=== PATIENT | male | born 1980 | race Caucasian/White ===

== ENCOUNTER 2018-12-01 13:45 | Emergency (ER) | payer OTHER ==
[2018-12-01] MEDS ORDERED: NORMAL SALINE 1000 ML 1,000 ML IV ONE ×2 (14:11→17:26)
--- NOTE | 2018-12-01 14:11 | ER Document Report ---
ED Medical Screen (RME) - General Chief Complaint: Nausea/Vomiting Stated Complaint: NAUSEA,VOMITING Time Seen by Provider: 12/01/18 14:10 Mode of Arrival: Medic Information source: Patient Notes: 38-year-old male presented to ED for generalized abdominal pain since yesterday. He states he is also had nausea and vomiting vomited once yesterday and 2 times today. He was brought in by EMS and they gave him 4 mg of IV Zofran and 500 cc of normal saline. He states the belly pain and the nausea is better but he still has it some. He will be given another 4 mg of Zofran and a liter of flui ds. Blood and urine will be sent. Patient is alert oriented respirations regular and unlabored speaking in full sentences. I have greeted and performed a rapid initial assessment of this patient. A comprehensive ED assessment and evaluation of the patient, analysis of test results and completion of medical decision making process will be conducted by an additional ED providers. TRAVEL OUTSIDE OF THE [place] IN LAST 30 DAYS: No - Related Data Allergies/Adverse Reactions: No Known Allergies Allergy (Unverified 12/01/18 13:50) Physical Exam - Vital signs Vitals: Temp Pulse Resp BP Pulse Ox 98.4 F 100 16 106/56 L 98 12/01/18 13:52 12/01/18 13:52 12/01/18 13:52 12/01/18 13:52 12/01/18 13:52 Course - Vital Signs Vital signs: Temp Pulse Resp BP Pulse Ox 98.4 F 100 16 106/56 L 98 12/01/18 13:52 12/01/18 13:52 12/01/18 13:52 12/01/18 13:52 12/01/18 13:52
[2018-12-01] MEDS ORDERED: ONDANSETRON HCL INJ/PF 4 MG/2 ML SDV IV ONE (14:12)
[2018-12-01 14:52] LABS: ABSOLUTE LYMPHOCYTES (AUTO) 0.7 10^3/uL (0.5-4.7); ABSOLUTE MONOCYTES (AUTO) 0.6 10^3/uL (0.1-1.4); ABSOLUTE NEUT (AUTO) 8.3 10^3/uL (1.7-8.2); BASOPHILS % (AUTO) 0.3 % (0-2); EOSINOPHILS % (AUTO) 0.3 % (0-6); HEMATOCRIT 46.6 % (37.9-51.0); HEMOGLOBIN 15.8 g/dL (13.5-17.0); LYMPHOCYTES % (AUTO) 6.8 % (13-45); MEAN CORPUSCULAR HEMOGLOBIN 30.7 pg (27.0-33.4); MEAN CORPUSCULAR HGB CONC 33.8 g/dL (32.0-36.0); MEAN CORPUSCULAR VOLUME 91 fl (80-97); MONOCYTES % (AUTO) 6.6 % (3-13); PLATELET COUNT 401 10^3/uL (150-450); RED BLOOD COUNT 5.14 10^6/uL (4.35-5.55); RED CELL DISTRIBUTION WIDTH 13.3 % (11.5-14.0); TOTAL CELLS COUNTED % (AUTO) 100 %; WHITE BLOOD COUNT 9.7 10^3/uL (4.0-10.5)
[2018-12-01 15:03] LABS: APPEARANCE,URINE SLIGHTLY-CLOUDY; BILIRUBIN,URINE SMALL (NEGATIVE); COLOR,URINE AMBER; GLUCOSE, URINE NEGATIVE (NEGATIVE); KETONES,URINE 20 mg/dL (NEGATIVE); LEUKOCYTE ESTERASE,URINE NEGATIVE (NEGATIVE); NITRITE,URINE NEGATIVE (NEGATIVE); PROTEIN,URINE 100 mg/dL (NEGATIVE); URINE SPECIFIC GRAVITY 1.035
[2018-12-01 15:12] LABS: ALANINE AMINOTRANSFERASE 95 U/L (21-72); ALBUMIN 3.8 g/dL (3.5-5.0); ALKALINE PHOSPHATASE 33 U/L (38-126); ANION GAP 10 (5-19); ASPARTATE AMINO TRANSFERASE 60 U/L (17-59); BILIRUBIN,DIRECT 0.4 mg/dL (0.0-0.4); BILIRUBIN,TOTAL 1.1 mg/dL (0.2-1.3); BLOOD UREA NITROGEN 18 mg/dL (7-20); CALCIUM 8.5 mg/dL (8.4-10.2); CARBON DIOXIDE 30 mmol/L (22-30); CHLORIDE 98 mmol/L (98-107); GLUCOSE 115 mg/dL (75-110); POTASSIUM 5.2 mmol/L (3.6-5.0); SODIUM 138.3 mmol/L (137-145); TOTAL PROTEIN 6.3 g/dL (6.3-8.2)
[2018-12-01] MEDS ORDERED: MAG HYDROX/AL HYDROX/SIMETH SUSP 30 ML UDCUP PO ONE (17:27)
[2018-12-01] MEDS ORDERED: LIDOCAINE 2% VISCOUS SOLN 20 ML UDCUP PO ONE (17:27)
[2018-12-01] MEDS ORDERED: PANTOPRAZOLE SODIUM 40 MG VIAL IV ONE (17:27)
[2018-12-01] MEDS ORDERED: METOCLOPRAMIDE HCL ORAL SOLN 10 MG/10 ML UDCUP PO ONE (17:27)
--- NOTE | 2018-12-01 17:34 | ER Document Report ---
ED General - General Chief Complaint: Nausea/Vomiting Stated Complaint: NAUSEA,VOMITING Time Seen by Provider: 12/01/18 14:10 Mode of Arrival: Medic TRAVEL OUTSIDE OF THE [place] IN LAST 30 DAYS: No - HPI Notes: Patient is a 38-year-old male that presents to the emergency department for chief complaint of nausea vomiting and diarrhea. Patient states yesterday morning he made eggs but ate them about 5 hours after making them. They had been sitting in room air. Patient states shortly after eating the eggs he started to feel nauseated and vomit. He states he had multiple episodes of emesis through last night and into this morning. He does report a few episodes of diarrhea as well. He denies any black or bloody stools. He states his last 2 episodes of emesis appeared to be bloody and black. Patient also reports crampy abdominal pain that started at the same time as the nausea yesterday. It is intermittent. He denies aggravating or relieving factors to his abdominal pain. He denies history of upper GI bleeding in the past. Patient states he used to be a heavy drinker but quit drinking alcohol a few months ago. He has had studies on his liver previously and states he has never had esophageal varices. He did receive fluids and Zofran in triage and states he is feeling much better. His nausea has resolved. He is asking for something to drink. Past Medical History: Negative Past Surgical History: Negative Social History: History of heavy alcohol abuse currently quit. Denies drug use Family History: Reviewed and noncontributory for presenting illness Allergies: Reviewed, see documented allergy list. REVIEW OF SYSTEMS: CONSTITUTIONAL : No fever No chills No diaphoresis No recent illness EENT: No vision changes No congestion No sore throat CARDIOVASCULAR: No chest pain No palpitations RESPIRATORY: No shortness of breath No cough No difficulty breathing GASTROINTESTINAL: abdominal pain nausea vomiting diarrhea GENITOURINARY: No dysuria No hematuria No difficulty urinating MUSCULOSKELETAL: No back pain No leg pain No arm pain SKIN: No rashes No lesions LYMPHATIC: No swollen, enlarged glands. NEUROLOGICAL: No lightheadedness No headache No weakness No paresthesias PSYCHIATRIC: No anxiety No depression PHYSICAL EXAMINATION: Vital signs reviewed, nursing noted reviewed. GENERAL: Well-appearing, well-nourished and in no acute distress. HEAD: Atraumatic, normocephalic. EYES: Eyes appear normal, extraocular movements intact, sclera anicteric, conjunctiva are normal. ENT: nares patent, oropharynx clear without exudates. Dry mucous membranes. NECK: No crepitus normal range of motion, supple without lymphadenopathy LUNGS: Breath sounds clear to auscultation bilaterally and equal. No wheezes rales or rhonchi. HEART: Regular rate and rhythm without murmurs ABDOMEN: Soft, nontender, normoactive bowel sounds. No rebound, guarding, or rigidity. No masses appreciated. EXTREMITIES: Nontender, good range of motion, no pitting or edema. NEUROLOGICAL: No focal neurological deficits. Moves all extremities spontaneously Motor and sensory grossly intact on exam. PSYCH: Normal mood, normal affect. SKIN: Warm, Dry, normal turgor, no rashes or lesions noted on exposed skin - Related Data Allergies/Adverse Reactions: No Known Allergies Allergy (Unverified 12/01/18 13:50) Past Medical History - General Information source: Patient - Social History Smoking Status: Current Every Day Smoker Chew tobacco use (# tins/day): No Frequency of alcohol use: weekly Drug Abuse: None Family History: Reviewed & Not Pertinent Patient has suicidal ideation: No Patient has homicidal ideation: No Renal/ Medical History: Denies: Hx Peritoneal Dialysis Physical Exam - Vital signs Vitals: Temp Pulse Resp BP Pulse Ox 98.4 F 100 16 106/56 L 98 12/01/18 13:52 12/01/18 13:52 12/01/18 13:52 12/01/18 13:52 12/01/18 13:52 Course - Re-evaluation Re-evalutation: 12/01/18 17:32 Vitals reviewed. Nursing notes reviewed. Patient is well-appearing but does appear dehydrated. He received IV fluids in triage and Zofran and states his nausea has improved. His mucous members are still dry and will be given a second liter of fluids. Patient did show me a photo of his emesis which is consistent with upper GI bleeding. His hematemesis started after multiple episodes of forceful emesis last night. He likely has a Ella-Landon tear. He has no severe pain in his chest or chest crepitus to suggest esophageal perforation. Patient will be given Protonix and GI cocktail for further symptomatic management. His lab work shows no acute anemia. He does appear dehydrated with a slight elevation of creatinine. His LFTs are also slightly elevated which may be related to his history of alcohol use or his forceful vomiting over the last 24 hours. Patient has no focal abdominal tenderness to suggest acute cholecystitis or other intra-abdominal process requiring imaging. Patient is tolerating oral intake. He will be discharged home with Zofran and omeprazole. Patient told if the hematemesis continues he should return to the emergency room. He is stable at discharge. Laboratory 12/01/18 12/01/18 12/01/18 14:20 14:30 14:30 WBC 9.7 RBC 5.14 Hgb 15.8 Hct 46.6 MCV 91 MCH 30.7 MCHC 33.8 RDW 13.3 Plt Count 401 Seg Neutrophils % 86.0 H Lymphocytes % 6.8 L Monocytes % 6.6 Eosinophils % 0.3 Basophils % 0.3 Absolute Neutrophils 8.3 H Absolute Lymphocytes 0.7 Absolute Monocytes 0.6 Absolute Eosinophils 0.0 Absolute Basophils 0.0 Sodium 138.3 Potassium 5.2 H Chloride 98 Carbon Dioxide 30 Anion Gap 10 BUN 18 Creatinine 1.34 H Est GFR ( Amer) > 60 Est GFR (Non-Af Amer) > 60 Glucose 115 H Calcium 8.5 Total Bilirubin 1.1 Direct Bilirubin 0.4 Neonat Total Bilirubin Not Reportable Neonat Direct Bilirubin Not Reportable Neonat Indirect Bili Not Reportable AST 60 H ALT 95 H Alkaline Phosphatase 33 L Total Protein 6.3 Albumin 3.8 Lipase 133.0 Urine Color MICHAEL Urine Appearance SLIGHTLY-CLOUDY Urine pH 6.0 Ur Specific Mcintosh 1.035 Urine Protein 100 H Urine Glucose (UA) NEGATIVE Urine Ketones 20 H Urine Blood NEGATIVE Urine Nitrite NEGATIVE Urine Bilirubin SMALL H Urine Urobilinogen 2.0 H Ur Leukocyte Esterase NEGATIVE Urine WBC (Auto) 3 Urine RBC (Auto) 2 Urine Bacteria (Auto) TRACE Urine Mucus (Auto) MOD Urine Ascorbic Acid NEGATIVE - Vital Signs Vital signs: Temp Pulse Resp BP Pulse Ox 98.4 F 100 16 106/56 L 98 12/01/18 13:52 12/01/18 13:52 12/01/18 13:52 12/01/18 13:52 12/01/18 13:52 - Laboratory Result Diagrams: 12/01/18 14:30 12/01/18 14:30 Laboratory results interpreted by me: 12/01/18 12/01/1819 14:20 14:30 14:30 Seg Neutrophils % 86.0 H Lymphocytes % 6.8 L Absolute Neutrophils 8.3 H Potassium 5.2 H Creatinine 1.34 H Glucose 115 H AST 60 H ALT 95 H Alkaline Phosphatase 33 L Urine Protein 100 H Urine Ketones 20 H Urine Bilirubin SMALL H Urine Urobilinogen 2.0 H Discharge - Discharge Clinical Impression: Abdominal cramping Hematemesis Qualifiers: Nausea presence: with nausea Qualified Code(s): K92.0 - Hematemesis Diarrhea Qualifiers: Diarrhea type: unspecified type Qualified Code(s): R19.7 - Diarrhea, unspecified Condition: Stable Disposition: HOME, SELF-CARE Instructions: Prilosec (Acid Pump Inhibitor) ([facility]), Upper Gastrointestinal Bleeding ([facility]) Additional Instructions: If you continue to have vomiting with blood you should be reevaluated in the emergency room Please return to the emergency department if you have any worsening, or concern of your symptoms. Please return to the emergency department if you develop chest pain, difficulty breathing, severe abdominal pain, or ongoing vomiting. Please follow-up with your primary care physician in 2-3 days and any other r ecommended physicians. If prescribed, take all medications as directed. If you have any questions or concerns do not hesitate to return the emergency department for evaluation. Prescriptions: Omeprazole 40 mg PO DAILY #30 capsule. Ondansetron [Zofran Odt 4 mg Tablet] 1 tab PO Q4H PRN #15 tab.rapdis PRN Reason: For Nausea/Vomiting Referrals: INA HALEY MD [ACTIVE STAFF] - Follow up in 1 week
[2018-12-01 19:18] VITALS: BP 120/66
== END 2018-12-01 19:18 | disposition home or self-care (01) ==
LOC: ER 13:45
DX: R10.84 Generalized abdominal pain (principal); K92.0 Hematemesis; R19.7 Diarrhea, unspecified; F17.200 Nicotine dependence, unspecified, uncomplicated
CPT/HCPCS: 99283; 96361; 96374; 96375; 36415; 83690; 85025; 80053; 81001; J3490; S0164; J2405; J7030